=== PATIENT | male | born 1995 | race African-American/Black ===

== ENCOUNTER 2021-07-27 11:50 | Emergency (ER) | payer OTHER ==
[~2021-07-27] VITALS: Ht 167.6 cm; Wt 70.5 kg
[2021-07-27 12:09] VITALS: TEMP 100.4
[2021-07-27 12:42] VITALS: BP 116/59; PULSE 91
== END 2021-07-27 12:45 | disposition home or self-care (01) ==
LOC: COL.ER 11:50
DX: U07.1 COVID-19 (principal)